=== PATIENT | female | born 1970 | race African-American/Black ===

== ENCOUNTER 2022-01-26 13:05 | Emergency (ER) | payer OTHER ==
[~2022-01-26] VITALS: Ht 170.2 cm; Wt 72.6 kg
[2022-01-26] MEDS ORDERED: CYCLOBENZAPRINE5 MG PO (13:15)
== END 2022-01-26 13:29 | disposition home or self-care (01) ==
LOC: ER 13:15
DX: M54.2 Cervicalgia (principal); M54.50 Low back pain, unspecified; M62.838 Other muscle spasm; V43.52XA Car driver injured in collision with other type car in traffic accident, initial encounter; Y92.488 Other paved roadways as the place of occurrence of the external cause
CPT/HCPCS: 99282